=== PATIENT | female | born 1940 | race Caucasian/White ===

== ENCOUNTER → 2023-06-11 | Outpatient (CLI) | payer MEDICARE ==
[2023-06-11 16:13] LABS: HCT 41.2 % (37.2-46.3); HGB 13.2 g/dL (12.0-15.0); MCH 30.1 pg (27.0-32.0); MCV 94.1 FL (80.0-97.0); Mean Platelet Volume 10.3 FL (9.5-12.2); NRBC Per 100 WBC 0 X 10*3/uL (0.00-0.01); Platelet Count 363 X 10*3/uL (140-440); RBC 4.38 X 10*6/uL (4.10-5.20); RDW 13.9 % (11.5-14.5); WBC 6.12 X 10*3/uL (4.50-10.00)
[2023-06-11 16:45] LABS: ALT 43 U/L (8-44); AST 42 U/L (13-35); Albumin 4.4 g/dL (3.8-4.9); Albumin/Globulin Ratio 1.52 Ratio (1.60-3.17); Alkaline Phosphatase 98 U/L (41-126); BUN/Creat Ratio 12.38 Ratio (12.00-20.00); Blood Urea Nitrogen 9.9 mg/dL (9.0-27.0); Calcium 9.8 mg/dL (8.7-10.3); Carbon Dioxide 26.3 mmol/L (21.6-31.8); Chloride 102 mmol/L (96-109); Chol/HDL Ratio 3.15 Ratio; Globulin 2.9 g/dL (1.6-3.3); Glucose 91 mg/dL (70-110); LDL Cholesterol,Calculated 114.4 mg/dL (0.0-131.0); Potassium 4.5 mmol/L (3.5-5.5); Sodium 140 mmol/L (135-145); Total Bilirubin 0.5 mg/dL (0.3-1.2); Total Protein 7.3 g/dL (6.2-8.2); VLDL Calculation 17.98 mg/dL (5.00-40.00)
== END | disposition home or self-care (01) ==
LOC: LABWHC1 11:58
PROVIDERS: ATTEND Internal Medicine Clinical Cardiac Electrophysiology
DX: I25.10 Atherosclerotic heart disease of native coronary artery without angina pectoris (principal); E78.5 Hyperlipidemia, unspecified
CPT/HCPCS: 36415; 80053; 80061; 84443; 85027

== ENCOUNTER 2023-09-03 11:13 | Day surgery (SDC) | payer MEDICARE ==
[~2023-09-03 11:13] MED LIST: ALPRAZolam 0.25 MG TAB PO PRN; ALPRAZolam 0.5 MG TAB PO PRN; HEPARIN SODIUM,PORCINE (1 ML) 2,500 UNIT in SODIUM CHLORIDE 0.9% 250 ML IRRIGATION PRN; HEPARIN SODIUM,PORCINE 10,000 UNIT in SODIUM CHLORIDE 0.9% 1,000 ML IRRIGATION PRN; NITROGLYCERIN SL TABS 0.4 MG TAB SUBLINGUAL PRN
[2023-09-03] MEDS: SODIUM CHLORIDE 0.9% 1,000 ML in EMPTY BAG 1 BAG IV SCH ×2 (11:45→17:42)
[2023-09-03] MEDS: IV FLUID CONTINUATION 1,000 ML IV ONE (11:46)
[2023-09-03 12:25] LABS: Basophils # (A) 0.1 k/uL (0-0.2); Basophils % (A) 1 %; Eosinophils # (A) 0.4 k/uL (0-0.7); Eosinophils % (A) 6 %; HCT 38.6 % (34.0-46.0); HGB 12.6 gm/dL (11.4-16.0); Lymphocytes # (A) 2.4 k/uL (1.0-4.8); Lymphocytes % (A) 35 %; MCHC 32.7 g/dL (31.0-37.0); MCV 91.8 fL (80.0-100.0); Mean Platelet Volume 7.6; Monocytes # (A) 0.5 k/uL (0-1.0); Monocytes % (A) 8 %; Neutrophils # (A) 3.2 k/uL (1.3-7.7); Neutrophils % (A) 47 %; Platelet Count 300 k/uL (150-450); RBC 4.21 m/uL (3.80-5.40); WBC 6.8 k/uL (3.8-10.6)
[2023-09-03 12:41] LABS: African American GFR (CKD) >90 (>60 ml/min/1.73 sqM); Anion Gap 4 mmol/L; Blood Urea Nitrogen 14 mg/dL (7-17); Calcium 9.2 mg/dL (8.4-10.2); Carbon Dioxide 28 mmol/L (22-30); Chloride 106 mmol/L (98-107); Glucose 82 mg/dL (74-99); Non-African American GFR(CKD) 81 (>60 ml/min/1.73 sqM); Potassium 4.3 mmol/L (3.5-5.1); Sodium 138 mmol/L (137-145)
[2023-09-03] MEDS ORDERED: fentaNYL (PF) 50 MCG/ML 2 ML AMP ONE (14:23)
[2023-09-03] MEDS ORDERED: VERAPAMIL 2.5 MG/ML 2 ML AMP ONE (14:23)
[2023-09-03] MEDS ORDERED: LIDOCAINE 1% INJ 10MG/ML (20 ML MDV) ONE (14:23)
[2023-09-03] MEDS ORDERED: HEPARIN SODIUM 1,000 UN/ML (10ML VL) ONE (14:23)
[2023-09-03] MEDS: MIDAZOLAM 2 MG/2 ML VIAL IVP ONE (14:30)
[2023-09-03] MEDS: fentaNYL (PF) 50 MCG/ML 2 ML AMP IVP ONE (14:30)
[2023-09-03] MEDS: LIDOCAINE 1% INJ 10MG/ML (20 ML MDV) SQ ONE (14:32)
[2023-09-03] MEDS: VERAPAMIL SYRINGE (5 MG/10 ML) INTRAARTER ONE (14:33)
[2023-09-03] MEDS: HEPARIN SODIUM 1,000 UN/ML (10ML VL) IV ONE (14:35)
[2023-09-03] MEDS ORDERED: CLOPIDOGREL 75 MG TAB ONE (15:02)
[2023-09-03] MEDS: CLOPIDOGREL 75 MG TAB PO ONE (15:06)
[2023-09-03] MEDS: IOPAMIDOL-370 100ML BTL INJ ONE (15:22)
[2023-09-03] MEDS: NITROGLYCERIN 1000MCG/10ML SYRINGE INTRACORON ONE (15:27)
[2023-09-03] MEDS: IOPAMIDOL-370 200ML BTL INJ ONE (15:34)
[2023-09-03 16:05] LABS: Glucose,Whole Blood 73 mg/dL (70-110)
--- NOTE | 2023-09-03 16:19 | P.PRCINT ---
Percutaneous Coronary Int. - Percutaneous Coronary Intervention Percutaneous Coronary Intervention: PROCEDURES PERFORMED: Left heart catheterization, bilateral coronary angiography, ultrasound guided arterial access, iFR circumflex, iFR RCA, PCI proximal LAD with a 3.0 x 15mm Xience KATHLEEN, post dilated with a 3.25mm NC balloon, IVUS LAD INDICATION: abnormal stress test with anterior ischemia, [place] Heart Association class III symptoms despite antianginals with inability to tolerate more antianginal medications. CONSENT:I have discussed the risks, benefits and alternative therapies for the above-mentioned procedure and for both sedation/analgesia as well as necessary blood product administration, if indicated, as they pertain to this patient. The patient has indicated understanding and acceptance of the risks and procedures discussed. PROCEDURE: After the risks, benefits and alternatives of the above mentioned procedure explained in detail with the patient, informed consent was obtained. Patient was taken to the catheterization lab and prepped and draped in usual fashion. Ultrasound guidance was used to assess for arterial access. 1% lidocaine was used to anesthetize the right radial artery. A 6-Dutch sheath was placed in the right radial artery using modified Seldinger technique and ultrasound guidance. Left coronary angiography was performed with a 5-Dutch JL 3.5 catheter and right coronary angiography was performed with a 5-Dutch FR5 catheter in various views. A 5-Dutch FR5 catheter was inserted into the left ventricle and pressure measurements were obtained. The decision was made to perform iFR of the RCA. Heparin was given. Using the FR5 catheter, 0.014 pressure wire was advanced into the proximal RCA and normalized. It was then advanced into the mid to distal RCA 1 cm past the RCA lesion and iFR was performed and was normal at 0.94. Next, iFR was performed using a CLS 3.5 guide catheter of the circumflex. The pressure wire was normalized then placed into the mid circumflex 1 cm past the lesion. Initially there was 0.09 drift on pullback with a reading of 0.85 and therefore the procedure was redone and was normal at 0.96 with no drift. Therefore the decision was made to perform PCI of LAD. A 0.014 BMW wire was advanced in the diagonal branch and then an additional 0.014 was per wire was advanced to the distal LAD. Intravascular ultrasound showed reference vessel 3.0 mm. Predilation was performed with a 3.0 x 12 mm noncompliant balloon. Next a 3.0 x 15 mm drug-eluting stent was placed in the proximal LAD. The stent was postdilated with a 3.25 mm noncompliant balloon. Repeat intravascular ultrasound showed well-expanded stent with 0% stenosis and no dissection. Final angiograms were performed. For intervention there was 80% stenosis and SANTIAGO-3 flow and postintervention there was less than 10% stenosis with SANTIAGO 3 flow. The right radial sheath was removed and a TR band was placed with hemostasis achieved. The patient tolerated the procedure well. Patient was transported back to the post catheterization holding area in stable condition. Conscious Sedation: Patient was monitored under the direct supervision of myself for conscious sedation using Versed and fentanyl for a total duration of 57 minutes HEMODYNAMICS: Ao: 137/72 LV: 131/5, LVEDP 16 SELECTIVE CORONARY ARTERIOGRAPHY: LEFT MAIN: The left main is a large caliber vessel which bifurcates into the LAD and circumflex. There is no significant stenosis. LEFT ANTERIOR DESCENDING CORONARY ARTERY: LAD is a large caliber vessel which wraps around to the apex. There is significant tortuosity in a more focal napkin ring 80% proximal LAD stenosis with residual 30% stenosis before and after the 80% stenosis. After the diagonal 1 branch there is a 20-30% mid LAD stenosis and otherwise mild luminal irregularities. LEFT CIRCUMFLEX CORONARY ARTERY: Left circumflex is a moderate caliber vessel with a proximal 60-70% stenosis and is tortuous and otherwise mild luminal irregularities.. RIGHT CORONARY ARTERY: The right coronary artery is a large caliber vessel which gives off a PDA and PLV branch and is the dominant vessel. There is a proximal 30-40% stenosis in a more focal mid RCA 60-70% stenosis. FINAL IMPRESSION: 1. CAD as described above including an 60-70% mid RCA, 60-70% proximal circumflex, 80% proximal LAD stenosis 2. Normal left sided filling pressures 3. iFR cirucmflex and RCA normal 4. S/p PCI proximal LAD with a 3.0 x 15mm Xience KATHLEEN, post dilated with a 3.25mm NC balloon PLAN: 1. Aggressive risk factor modification per most recent ACC/AHA guidelines. 2. Continue dual antiplatelets with aspirin and Plavix for 6 months
[2023-09-03] MEDS ORDERED: ATROPINE SULFATE 0.1 MG/ML 10ML SYRINGE IV PRN (16:20)
[2023-09-03] MEDS ORDERED: ZOLPIDEM 5 MG TAB PO PRN (16:20)
[2023-09-03] MEDS ORDERED: MAG HYDROX/AL HYDROX/SIMETH 30 ML CUP PO PRN (16:20)
[2023-09-03] MEDS ORDERED: RX INFO: IV CONTRAST WAS GIVEN 1 EACH MISC MISCELLANE PRN (16:20)
[2023-09-03] MEDS: ASPIRIN 325 MG TAB PO STA (17:41)
[2023-09-03] MEDS: ATORVASTATIN 80 MG TAB PO STA (17:42)
[2023-09-04 06:51] LABS: African American GFR (CKD) 86 (>60 ml/min/1.73 sqM); Non-African American GFR(CKD) 75 (>60 ml/min/1.73 sqM)
[2023-09-04] MEDS: ASPIRIN 81 MG PO SCH (08:46)
[2023-09-04] MEDS: ATORVASTATIN 20 MG TAB PO SCH (08:46)
[2023-09-04] MEDS: MULTIVITAMINS, THERA 1 EACH TAB PO SCH (08:46)
[2023-09-04] MEDS: CLOPIDOGREL 75 MG TAB PO SCH (08:46)
[2023-09-04] MEDS ORDERED: ZINC PO SCH (09:00)
[2023-09-04] MEDS ORDERED: NON FORMULARY DRUG (Omega-3 Fatty Acids/Fish Oil [Fish Oil 1,000 Mg Softgel] 1 EACH Capsul PO SCH (09:00)
[2023-09-04 09:05] VITALS: BP 116/65; PULSE 64; RESP 16; TEMP 98.2
--- NOTE | 2023-09-04 10:19 | P.DS ---
Providers Attending physician: Clive Chino DO Consults: 09/03/23 16:20 Consult Physician Routine Consulting Provider: [facility] Consult Reason/Comments: Post Interventional patient Do you want consulting provider notified?: Already Contacted Primary care physician: Farrah Mehta [facility] Course: This is an 83-year-old female who underwent cardiac catheterization yesterday with Dr. Chino revealing 60 to 70% mid RCA stenosis, 60 to 70% proximal circumflex stenosis, and 80% proximal LAD stenosis. Normal left-sided filling pressures. IFR circumflex and RCA normal. Patient underwent stenting of the pr oximal LAD. Patient is doing well post procedure with no immediate complications noted. She denies any chest pain or pressure. Denies any shortness of breath. Vital signs are stable. Patient was deemed stable for discharge home today. Patient will continue with dual antiplatelet therapy with aspirin and Plavix for 6 months. Patient also discharged home on statin therapy with LDL goal less than 60. Please see EMR for further hospital course details. Discharge Diagnosis Abnormal stress test with anterior ischemia [place] Heart Association class III symptoms despite antianginals with inability to tolerate more antianginal medications Status postcardiac catheterization revealing 60-70% mid RCA, 60-70% proximal circumflex, 80% proximal LAD stenosis Status post PCI proximal LAD 3.0 x 15mm Xience KATHLEEN, post dilated with a 3.25mm NC balloon Nurse practitioner note has been reviewed by physician. Signing provider agrees with the documented findings, assessment, and plan of care documented by [employer] as a scribe. Plan - Discharge Summary Discharge Rx Participant: No New Discharge Prescriptions: No Action [place]-3 Fatty Acids/Fish Oil [Fish Oil 1,000 mg Softgel] 3 cap PO DAILY Rosuvastatin [Crestor] 10 mg PO DAILY Unk Multi Vitamin 1 tab PO DAILY Unk Enhanced Cbd Gummie 1 tab PO DAILY Aspirin 81 mg PO DAILY Unk Mg+/Zinc 1 tab PO DAILY Unk Biotin 1 tab PO DAILY Discharge Medication List [place]-3 Fatty Acids/Fish Oil [Fish Oil 1,000 mg Softgel] 3 cap PO DAILY 06/13/15 [History] Aspirin 81 mg PO DAILY 09/02/23 [History] Rosuvastatin [Crestor] 10 mg PO DAILY 09/02/23 [History] Unk Biotin 1 tab PO DAILY 09/02/23 [History] Unk Enhanced Cbd Gummie 1 tab PO DAILY 09/02/23 [History] Unk Mg+/Zinc 1 tab PO DAILY 09/02/23 [History] Unk Multi Vitamin 1 tab PO DAILY 09/02/23 [History] Follow up Appointment(s)/Referral(s): Rakesh Riggs MD [STAFF PHYSICIAN] - 09/10/23 11:15 am (August 11:15 AM ) Patient Instructions/Handouts: Moderate Sedation (DC), After Radial Heart Catheterization (GEN) Activity/Diet/Wound Care/Special Instructions: NO DRIVING TODAY OR TOMORROW. AVOID PUSHING PULLING LIFTING GREATER THAN 5LB FOR FIVE DAYS. SIGNS OF INFECTION IE: FEVER, SWELLING OR HARD KNOT, UNUSUAL DRAINAGE OR RASH CONTACT DOCTOR TO BE EVALUATED. IF PUNCTURE BLEEDS, APPLY FIRM DIRECT PRESSURE AND GO TO ER. DO NOT DRIVE SELF. CALL 911 [address] YOU. MEDICATIONS DIRECTED BY CARDIOLIGIST. FALL PRECAUTIONS TODAY. AVOID IMMERSING WRIST IN STANDING WATER (TUBS, POOLS, DOING DISHES ECT FOR 3 DAYS TO AVOID RISK OF INFECTION).
== END 2023-09-04 11:30 | disposition home or self-care (01) ==
LOC: CATHCVL 11:13 → 6NMEDSUR 15:33 → CATHCVL 09-04 11:30
PROVIDERS: ATTEND Internal Medicine
DX: I25.10 Atherosclerotic heart disease of native coronary artery without angina pectoris (principal); E78.5 Hyperlipidemia, unspecified; Z79.02 Long term (current) use of antithrombotics/antiplatelets; Z79.899 Other long term (current) drug therapy
CPT/HCPCS: 92978; 93458; 93799; 76937; 80048; 82565; 85025; C9600; C1769 ×4; C1887; C1894; C1753; C1874; C1725 ×2; J2250; J2001; J3010; J1644; Q9967 ×2; J2305

== ENCOUNTER → 2023-12-11 | Outpatient (CLI) | payer MEDICARE ==
[2023-12-11 15:59] LABS: ALT 44 U/L (8-44); AST 40 U/L (13-35); Albumin 4.1 g/dL (3.8-4.9); Albumin/Globulin Ratio 1.41 Ratio (1.60-3.17); Alkaline Phosphatase 106 U/L (41-126); BUN/Creat Ratio 12.71 Ratio (12.00-20.00); Blood Urea Nitrogen 8.9 mg/dL (9.0-27.0); Calcium 9.3 mg/dL (8.7-10.3); Chloride 105 mmol/L (96-109); Chol/HDL Ratio 2.49 Ratio; Globulin 2.9 g/dL (1.6-3.3); Glucose 91 mg/dL (70-110); LDL Cholesterol,Calculated 62.2 mg/dL (0.0-131.0); Potassium 4.3 mmol/L (3.5-5.5); Sodium 140 mmol/L (135-145); Total Bilirubin 0.3 mg/dL (0.3-1.2); VLDL Calculation 13.72 mg/dL (5.00-40.00)
== END ==
LOC: LABWHC1 09:28
PROVIDERS: ATTEND Internal Medicine Clinical Cardiac Electrophysiology
DX: I25.10 Atherosclerotic heart disease of native coronary artery without angina pectoris
CPT/HCPCS: 36415; 80053; 80061; 84443